=== PATIENT | male | born 1955 | race Caucasian/White ===

== ENCOUNTER → 2024-01-21 14:24 | Outpatient (REF) | payer OTHER, SELFPAY | LOC: RAD 14:24 | PROVIDERS: ATTENDING PHYSICIAN Family Medicine | DX: Z82.49 Family history of ischemic heart disease and other diseases of the circulatory system (principal) | CPT/HCPCS: 93880 ==

== ENCOUNTER → 2024-11-30 09:26 | Outpatient (REF) | payer OTHER, SELFPAY | LOC: HWRAD 09:26 | PROVIDERS: ATTENDING PHYSICIAN Family Medicine; REFERRING PHYSICIAN Internal Medicine Cardiovascular Disease | DX: K76.89 Other specified diseases of liver (principal) | CPT/HCPCS: 76700 ==

== ENCOUNTER 2025-03-23 11:50 | Emergency (ER) | payer OTHER, SELFPAY ==
[2025-03-23 11:58] VITALS: BP 144/79
--- NOTE | 2025-03-23 13:41 | ED.GENMED ---
History of Present Illness
General
Chief Complaint: Skin Surface Trauma
Source: patient
Exam Limitations: none
Time Seen by Provider: 03/23/25 13:07
History of Present Illness
History of Present Illness:
Patient is a 69-year-old male presents to the ER for evaluation of scrotal laceration. Patient was in the shower and noticed that he was bleeding. He reports the area seemed to be bleeding however clotted and reports has now stopped. He believes
he may have scratched himself while getting a shower. He is not on blood thinners.
No other injuries.
Review of Systems
Review of Systems
Allergies reviewed?: Yes
All Other Systems: ROS reviewed and negative except as documented in HPI and ROS
Constitutional: Reports no symptoms
Skin: Reports no symptoms
Psychiatric: Reports no symptoms
Phy Exam
General Physical Exam
General Presentation: no apparent distress
General age: appears stated age
General Skin: warm and dry
General Habitus: normal
General Mental: alert
General Hydration: appears well hydrated
Genitourinary Exam Male
Exam Male: other (+ very small abrasion to left scrotum region no active bleeding )
Neurological Exam
Neurological Exam: alert and oriented x3
Musculoskeletal Exam
Musculoskeletal Exam: full ROM
Skin Exam
Skin Exam: normal color and warm/dry
Psychiatric Exam
Psychiatric Exam: normal mood/affect
Course
Vital Signs
Initial and Last Documented VS:
Initial Vital Signs
Temp Pulse Resp BP Pulse Ox
97.7 F 65 16 144/79 98
03/23/25 11:58 03/23/25 11:58 03/23/25 11:58 03/23/25 11:58 03/23/25 11:58
Last Documented Vital Signs
Temp Pulse Resp BP Pulse Ox
97.7 F 65 16 144/79 98
03/23/25 11:58 03/23/25 11:58 03/23/25 11:58 03/23/25 11:58 03/23/25 11:58
MDM/Problems Addressed
Differential Diagnosis Includes:
not limited to: abrasion
MDM/Problems Addressed:
Simple abrasion to left scrotum that was bleeding prior to arrival however has now stopped. Patient is not on blood thinners. No further intervention needed
*Critical Care Note
Total Time (30-74mins, 75-104mins- exclusive of procedures): Not Applicable
ED Attending Note
-
Portions of this chart may have been created with voice recognition software.� Occasional wrong word or��sound alike� substitutions may have occurred due to the inherent limitations of voice recognition software.
Discharge Plan
Departure
Patient Disposition: Home (Routine Discharge)
Date of Disposition: 03/23/25
Time of Disposition: 13:35
Patient with high blood pressure during this ER visit?: Yes
Condition: Fair
Covid-19: Not Applicable
Discharge Problem:
Abrasion of scrotum
Prescriptions:
No Action
citalopram 20 MG tablet
20 mg PO HS
mirtazapine 15 MG tablet
15 mg PO HS
celecoxib 200 MG capsule
200 mg PO BID Qty: 60 0RF
Rx Instructions:
Take with food.
Do not take within 2 hours of Aspirin.
aspirin 325 MG tablet
325 mg PO DAILY Qty: 30 0RF
Rx Instructions:
Take daily x4 weeks for blood clot prevention.
ondansetron HCl 4 MG tablet
4 mg PO Q6HPRN PRN (Reason: nausea) Qty: 30 0RF
Rx Instructions:
Take 1/2 hour before Oxycodone if experiencing recurrent nausea.
oxycodone 5 MG tablet
5 mg PO Q6HPRN PRN (Reason: moderate-severe pain) Qty: 60 0RF
Rx Instructions:
1 tab moderate pain or 2 if pain severe
Dx total joint replacement
ongoing therapy
acetaminophen 500 MG tablet
1,000 mg PO Q6H Qty: 1 0RF
Rx Instructions:
Do not exceed >4000 mg daily.
docusate sodium 100 MG capsule
100 mg PO BID Qty: 1 0RF
sennosides [senna] 8.6 MG tablet
8.6 mg PO BID Qty: 2 0RF
Referrals:
Ankit Rogel DO [Family Provider] -
Activity Restrictions/Additional Instructions:
You may apply small layer of antibiotic ointment to the area. Continue to wash with simply soap and water. Return if any worsening of symptoms.
Follow-up with family doctor as needed in the next several days.
Interventions
Interventions:
*Risk Screen - Suicide Last Done: 03/23/25 11:58
*General Assessment Last Done: 03/23/25 11:58
*Neglect/Abuse Screening Last Done: 03/23/25 11:58
*ED COVID-19 Vaccine History Last Done: 03/23/25 11:58
Discharge Date and Time
Print Language: BULGARIAN
[2025-03-23 13:47] VITALS: BP 135/77
[2025-03-23 13:51] VITALS: BP 135/77
== END 2025-03-23 13:52 | disposition home or self-care (01) ==
LOC: EMR 11:50
PROVIDERS: EMERGENCY PHYSICIAN Emergency Medicine; FAMILY PHYSICIAN Family Medicine
DX: S30.813A Abrasion of scrotum and testes, initial encounter (principal); X58.XXXA Exposure to other specified factors, initial encounter
CPT/HCPCS: 99282